=== PATIENT | female | born 1965 | race Hispanic/Latino ===

== ENCOUNTER 2018-06-14 15:20 | Emergency (ER) | payer OTHER, MEDICARE ==
[~2018-06-14] VITALS: Ht 162.6 cm; Wt 72.4 kg
[~2018-06-14 15:20] MED LIST: AMOXICILLIN500 MG PO; BENADRYL25 M1 PO; CIPROFLOXACN500 MG PO; ESCITALOPRAM OX10 MG PO; LORTAB 7.5-3251 TAB PO; MEDDOSEPAK PO; ONDANSETRON4 MG PO; OXYBUTYNIN5 MG PO; PRILOSEC20 MG/CAP PO; VESICARE5 MG PO
[2018-06-14 16:22] LABS: HEMATOCRIT 39.6 % (37.0-47.0); HEMOGLOBIN 13.2 g/dl (12.0-16.0); IMMATURE GRANULOCYTES 0.6 % (0.0-5.0); MEAN CELL VOLUME 90.2 fL CALC (80.0-100.0); MEAN CORPUSCULAR HGB 30.1 pG CALC (26.0-32.0); MEAN CORPUSCULAR HGB CONC 33.3 g/L CALC (32.0-36.0); NEUT# 4.6 thou/uL (2.00-7.15); RED BLOOD COUNT 4.39 mill/uL (4.20-5.60)
[2018-06-14 17:02] LABS: ALKALINE PHOSPHATASE 59 u/l (38-126); ANION GAP 12 (6-22 (CALC)); BILIRUBIN, TOTAL 0.6 mg/dL (0.0-1.4); BUN 17 mg/dL (7-17); BUN/CREATININE RATIO 25 (12-20 (CALC)); CARBON DIOXIDE 29 mmol/l (22-30); CHLORIDE 106 mmol/l (95-108); CREATININE 0.7 mg/dL (0.5-1.0); GFR > 60 ML/MIN (>=60 (CALC)); GFR FOR AFR.AMER. > 60 ML/MIN (>=60 (CALC)); POTASSIUM 3.7 mmol/l (3.5-5.1); SGOT/AST 22 u/l (14-36); SGPT/ALT 32 u/l (9-52); SODIUM 143 mmol/l (137-146); TOTAL PROTEIN 6.8 g/dL (6.3-8.2)
[2018-06-14] MEDS ORDERED: TORADOL PO (17:17)
[2018-06-14] MEDS ORDERED: FLEXERIL PO (17:17)
[2018-06-14 17:24] VITALS: BP 134/72
== END 2018-06-14 17:25 | disposition home or self-care (01) | DRG 552 ==
LOC: ED 15:20
PROVIDERS: Emergency Medicine
DX: S16.1XXA Strain of muscle, fascia and tendon at neck level, initial encounter (principal); S50.11XA Contusion of right forearm, initial encounter; S20.219A Contusion of unspecified front wall of thorax, initial encounter; V43.52XA Car driver injured in collision with other type car in traffic accident, initial encounter

== ENCOUNTER 2021-04-30 16:47 | Emergency (ER) | payer MEDICARE ==
[~2021-04-30] VITALS: Ht 162.6 cm; Wt 75.0 kg
[~2021-04-30 16:47] MED LIST changes: +FLEXERIL PO; +TORADOL PO
[2021-04-30] MEDS ORDERED: FLEXERIL5 M1 PO (18:53)
[2021-04-30] MEDS ORDERED: HYDROCO/APAP1 TA9 PO (18:53)
[2021-04-30 19:02] VITALS: BP 148/72
== END 2021-04-30 19:10 | disposition home or self-care (01) ==
LOC: ED 16:47
DX: S22.070A Wedge compression fracture of T9-T10 vertebra, initial encounter for closed fracture (principal); S39.012A Strain of muscle, fascia and tendon of lower back, initial encounter; W10.9XXA Fall (on) (from) unspecified stairs and steps, initial encounter; Z98.1 Arthrodesis status

== ENCOUNTER 2021-10-18 22:00 | Emergency (ER) | payer MEDICARE ==
[~2021-10-18] VITALS: Ht 162.6 cm; Wt 75.0 kg
[~2021-10-18 22:00] MED LIST changes: +FLEXERIL5 M1 PO; +HYDROCO/APAP1 TA9 PO
[2021-10-18 22:50] VITALS: BP 147/84
== END 2021-10-18 22:50 | disposition home or self-care (01) ==
LOC: ED 22:00
DX: S61.211A Laceration without foreign body of left index finger without damage to nail, initial encounter (principal); W26.0XXA Contact with knife, initial encounter; Y93.89 Activity, other specified; Y92.009 Unspecified place in unspecified non-institutional (private) residence as the place of occurrence of the external cause

== ENCOUNTER 2024-05-04 06:51 | Day surgery (SDC) | payer MEDICARE ==
[~2024-05-04] VITALS: Ht 134.6 cm; Wt 75.7 kg
[~2024-05-04 06:51] MED LIST changes: +ATORVASTATIN CA10 MG PO; +CALCIUM500 M5 PO; +CARAFATE PO; +CYMBALTA30 MG PO; +LISINOPRIL10 MG PO; +LOSARTAN POTASS50 MG PO; +NEXIUM40 M1 PO; +SIMVASTATIN20 M1 PO; +VITAMIN B-12250 MCG PO; +VITAMIN D-32000 UNI1 PO
[2024-05-04] MEDS ORDERED: FAMOTIDINE 10MG/ML 2ML SDV IV ONE (07:00)
[2024-05-04] MEDS ORDERED: LACTATED RINGER'S 1,000 ML IV ONE (07:00)
[2024-05-04 08:39] VITALS: BP 130/79
[2024-05-04] MEDS ORDERED: GLYCOPYRROLATE 0.2 MG/ML IV ONE (13:32)
[2024-05-04] MEDS ORDERED: PROPOFOL 500 MG/50 ML VIAL IV ONE (13:32)
[2024-05-04] MEDS ORDERED: LIDOCAINE HCL 2% 2ML SDV IV ONE (13:32)
== END 2024-05-04 08:51 | disposition home or self-care (01) ==
LOC: ENDO 06:51
PROVIDERS: ATTEND Internal Medicine Gastroenterology
PROC: 0DBH8ZX Excision of Cecum, Via Natural or Artificial Opening Endoscopic, Diagnostic (ICD-10-PCS; principal; 2024-05-04)
DX: Z12.11 Encounter for screening for malignant neoplasm of colon (principal); D12.0 Benign neoplasm of cecum; K64.8 Other hemorrhoids; K21.9 Gastro-esophageal reflux disease without esophagitis; K29.70 Gastritis, unspecified, without bleeding; Z79.899 Other long term (current) drug therapy

== ENCOUNTER 2024-07-08 17:37 | Emergency (ER) | payer MEDICARE ==
[~2024-07-08] VITALS: Ht 134.6 cm; Wt 77.1 kg
[2024-07-08] VITALS (11 sets, daily range): BP systolic 106–150; BP diastolic 61–91
[2024-07-08 18:29] LABS: BASO% 0.8 % (0-3); EOS% 3.1 % (0-8); HEMATOCRIT 39.2 % (37.0-47.0); HEMOGLOBIN 12.9 g/dl (12.0-16.0); IMMATURE GRANULOCYTES 0.1 % (0.0-5.0); LYMPH% 28.8 % (15-41); MEAN CELL VOLUME 88.3 fL CALC (80.0-100.0); MEAN CORPUSCULAR HGB 29.1 pG CALC (26.0-32.0); MEAN CORPUSCULAR HGB CONC 32.9 g/dL CAL (32.0-36.0); MONO% 5.5 % (2-13); NEUT# 4.62 thou/uL (2.00-7.15); NEUT% 61.7 % (42-76); RED BLOOD COUNT 4.44 mill/uL (4.20-5.60); RED CELL DISTRI WIDTH 13.7 % (11.5-15.5); URINE BILIRUBIN - DIPSTICK Negative (NEGATIVE); URINE BLOOD DIPSTICK Small (NEGATIVE); URINE GLUCOSE - DIPSTICK Negative (NEGATIVE); URINE KETONE Negative (NEGATIVE); URINE LEUK ESTERASE Negative (NEGATIVE); URINE NITRITE - DIPSTICK Negative (Negative); URINE PH 6.5 (4.5-8.0); URINE PROTEIN - DIPSTICK Negative (NEG-TRACE); URINE UROBILINOGEN - DIPSTICK 0.2 E.U./dL (0.2)
[2024-07-08 18:30] LABS: URINE COLOR Yellow
[2024-07-08 18:37] LABS: ALBUMIN 4.5 g/dL (3.2-5.0); ALKALINE PHOSPHATASE 66 u/l (38-126); ANION GAP 10 (6-22 (CALC)); BILIRUBIN, TOTAL 0.8 mg/dL (0.02-1.3); BUN 16 mg/dL (7-17); BUN/CREATININE RATIO 21 (12-20 (CALC)); CARBON DIOXIDE 26 mmol/l (22-30); CHLORIDE 108 mmol/l (95-108); CREATININE 0.8 mg/dL (0.5-1.0); ESTIMATED GFR 85 ML/MIN (>=90 (CALC)); LIPASE 69 u/l (23-300); POTASSIUM 3.9 mmol/l (3.5-5.1); SGOT/AST 27 u/l (14-36); SODIUM 139 mmol/l (137-146); TOTAL PROTEIN 7.4 g/dL (6.3-8.2)
[2024-07-08] MEDS ORDERED: ONDANSETRON HCl 4 MG/2 ML SDV IV STA (18:38)
[2024-07-08] MEDS ORDERED: SODIUM CHLORIDE 0.9% 1,000 ML IV STA (18:38)
[2024-07-08] MEDS ORDERED: KETOROLAC TROMETHAMINE 30 MG/ML SDV IV STA (18:38)
[2024-07-08 18:39] LABS: URINE WBC 0-2 WBC/hpf (0-5)
[2024-07-08 18:40] LABS: URINE SQUAMOUS EPITHELIAL CELL FEW EPI/hpf (0-FEW)
[2024-07-08] MEDS ORDERED: FAMOTIDINE 10MG/ML 2ML SDV IV ONE (18:40)
[2024-07-08] MEDS ORDERED: ALUM & MAG HYDROX-SIMETHICONE 30 ML PO ONE (20:20)
[2024-07-08] MEDS ORDERED: Pantoprazole Sodium 40 MG VIAL (Protonix) IV ONE (20:20)
[2024-07-08] MEDS ORDERED: LIDOCAINE VISCOUS 2% 15 ML UDC PO ONE (20:20)
[2024-07-08] MEDS ORDERED: OMEPRAZOLE DR40 MG PO (21:13)
== END 2024-07-08 21:54 | disposition home or self-care (01) ==
LOC: ED 17:37
PROVIDERS: Nurse Practitioner
DX: K21.9 Gastro-esophageal reflux disease without esophagitis (principal)
CPT/HCPCS: J2470; Q9967